=== PATIENT | female | born 2005 | race Caucasian/White ===

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

== ENCOUNTER 2023-02-17 21:08 | Observation (INO) | payer MEDICAID ==
[2023-02-17 22:32] LABS: Appearance Cloudy (Clear); Bacteria Few /HPF (None Seen); Bilirubin Negative (Negative); Blood Negative (Negative); Epithelial Cells Many /HPF (None Seen); Glucose, Urine Negative (Negative); Hyaline Casts NONE SEEN /LPF (0-2); Ketones Negative (Negative); Leukocyte Esterase Negative (Negative); Nitrite Negative (Negative); Ph 7.5 (4.6-8.0); Protein,Urine Dip Negative (Negative); RBC 0-2 /HPF (0-5)
[2023-02-17 22:33] LABS: ADD URINE CULTURE? NO (NO); WBC 0-2 /HPF (0-5)
[2023-02-17 22:34] LABS: Amphetamine,Urine NEGATIVE (NEGATIVE); Barbiturate,Urine NEGATIVE (NEGATIVE); Benzodiazepine,Urine NEGATIVE (NEGATIVE); Cocaine,Urine NEGATIVE (NEGATIVE); Methadone,Urine NEGATIVE (NEGATIVE); Opiate,Urine NEGATIVE (NEGATIVE); PCP,Urine NEGATIVE (NEGATIVE); THC,Urine NEGATIVE (NEGATIVE)
[2023-02-17 23:13] VITALS: BP 119/77; PULSE 84; RESP 18; TEMP 98; O2SAT 99
--- NOTE | 2023-02-25 11:42 | PCM.SSS ---
History of Present Illness - Chief Complaint History of Present Illness: is a 17 year old female. pt is 17 yo who presented with cramping intermittently and was given po hydration upon arrival and now feeling better whose provider is outside of [facility]. denies any other complaints. Medications & Allergies Home Medications: Home Medication List 147/Iron/Folic Acid [Azesco Tablet] 1 each PO DAILY 10/26/22 [History Confirmed 02/17/23] Allergies/Adverse Reactions: Allergies Allergy/AdvReac Type Severity Reaction Status Date / Time No Known Drug Allergies Allergy Verified 02/17/23 21:48 - Past Medical History Past Medical History: No Neurological History: No Pertinent History ENT History: No Pertinent History Cardiac History: No Pertinent History Respiratory History: No Pertinent History Endocrine Medical History: No Pertinent History Musculoskelatal History: No Pertinent History GI Medical History: No Pertinent History History: No Pertinent History Pyscho-Social History: Depression Reproductive Disorders: No Pertinent History - Female History Expected Date of Delivery: 03/18/23 - Past Surgical History Past Surgical History: No - Social History Smoking Status: Never smoker How long have you smoked: 3 years Exposure to second hand smoke: No Alcohol: None Drug Use: none Significant Family History: no pertinent family hx - Physical Exam Pelvic Exam: other (closed per nurse exam) Hospital Summary - Vitals & Intake/Output Vital Signs: Vital Signs Temperature 98 F 02/17/23 23:05 Pulse Rate 84 02/17/23 23:05 Respiratory Rate 18 02/17/23 23:05 Blood Pressure 119/77 02/17/23 23:05 O2 Sat by Pulse Oximetry 99 02/17/23 23:05 - Discharge Disposition: Home, Self-Care Condition: Stable Prescriptions: No Action 147/Iron/Folic Acid [Azesco Tablet] 1 each PO DAILY Instructions: Labor (DC), How to tell when labor starts, Vitamins (Multiple/) Additional Instructions: drink lots of fluids call dr brown in am to update him if any questions arise call labor and delivery and go to your hospital Follow up with: DOCTOR,NO FAMILY [NON-STAFF PHY W/O PRIVILEGES] - Forms: OB Outpatient Discharge Inst.
== END 2023-02-17 23:35 | disposition home or self-care (01) ==
LOC: OB 21:08
PROVIDERS: ADMIT Obstetrics & Gynecology; ATTEND Obstetrics & Gynecology
DX: Z34.83 Encounter for supervision of other normal pregnancy, third trimester (principal); Z3A.37 37 weeks gestation of pregnancy
CPT/HCPCS: 80307; 81001; G0378; G0379